=== PATIENT | female | born 1985 | race Caucasian/White ===

== ENCOUNTER 2021-11-22 00:25 | Inpatient (IN) | payer BC ==
[~2021-11-22 00:25] MED LIST: Acetaminophen 325 MG Tab PO PRN; Carboprost Tromethamine 250 MCG/1 ML Amp IM PRN; Lactated Ringers 1,000 ML IV ONE; Lidocaine 1% 30 ML SDV INJECT PRN; Methylergonovine 0.2 MG/1 ML Amp IM PRN; Misoprostol 400 MCG (4 X 100 MCG TAB) RECTAL PRN; Ondansetron 4 MG/2 ML SDV IVPUSH PRN; Oxytocin/Normal Saline 30 UNIT/500 ML BAG IV SCH; Tranexamic Acid 1,000 MG in Sodium Chloride 0.9% 100 ML IV PRN; hydrOXYzine HCl 25 MG Tab PO PRN
[2021-11-22] MEDS: Misoprostol 25 MCG (1/4 of 100 MCG) Tab VAG PRN ×2 (01:12→05:26)
--- NOTE | 2021-11-22 02:22 | HP ---
CHIEF COMPLAINT: Induction of labor. HISTORY OF PRESENT ILLNESS: Marianna Jacobsen is a 36-year-old, , female at 39- 4/7 days gestation, confirmed by last menstrual period on 02/18/2021, here for induction due to advanced maternal age. She has had great care starting at 6 weeks, and was only complicated by COVID infection during 2nd trimester, which was diagnosed on 08/19/2021. She was fully vaccinated. Secondly, she had impaired glucose tolerance, passing her 3-hour oral glucose tolerance test, and advanced maternal age. Medication exposures included baby aspirin 81 mg, which she takes every other day, last dose being 2 days ago; Colace and MiraLAX; vitamin; albuterol inhaler during COVID, which she has not taken since; and iron, which she took intermittently. Today, she presents without any bleeding, loss of fluid, or contractions. She does report a few [place] every now and then. She denies any preeclampsia signs or symptoms and has no concerns. LABORATORIES: Blood type A positive, antibody screen negative, rubella immune, hepatitis C nonreactive, HIV nonreactive, hepatitis B surface antigen nonreactive, RPR nonreactive. 1-hour oral glucose tolerance test 160, 3-hour 92, 114, 105, 58. UA wet prep negative. Declined GC testing. Quad screen negative. Eighteen-week ultrasound within normal limits with a posterior placenta. HISTORY: Negative. ALLERGIES: No known allergies. PAST MEDICAL HISTORY: Obesity; COVID infection on 08/19/2021. PAST SURGICAL HISTORY: Tonsillectomy and wisdom teeth extraction. PAST FAMILY HISTORY: Mother with breast cancer at 56. Father with atrial fibrillation. Maternal grandmother, colon cancer. Maternal grandfather, multiple myeloma. Paternal grandmother, Parkinson's. Paternal grandfather, leukemia. SOCIAL HISTORY: . Works as an RN at [employer]. Quit smoking in August of 2020. Previously smoked half pack a day and lives in [place], [place]. PHYSICAL EXAMINATION: Vital Signs: Blood pressure 137/71, pulse 72, temperature 98.5 Fahrenheit, respirations 16. HEENT: Unremarkable. Cardiovascular: Regular rate and rhythm. No murmurs, rubs, or gallops. Respiratory: Clear to auscultation bilaterally. Abdomen: Gravid, soft, nontender. Baby palpates vertex. Cervical: Posterior cervix, fingertip and thin, 90%. Tocometer shows heart tones in 120s, category 1, and reactive. Extremities: Moderate lower leg edema bilaterally. Full range of motion. Skin: Warm and well perfused. No cyanosis, jaundice. Neurologic: No focal deficits. ASSESSMENT: 1. Intrauterine at 39 weeks 4 days. 2. . 3. Blood type A positive, rubella immune, group B streptococcus negative. 4. Advanced maternal age. 5. COVID infection affecting 2nd trimester. 6. Impaired glucose tolerance. PLAN: We will start induction with placement of 25 mg Cytotec vaginally every 4 hours until cervix is favorable and artificial rupture of membranes can occur. The patient also plans on having intrathecal for pain management, plans to breastfeed, and also plans on circumcision of baby boy. We will continue to allow labor to progress and monitor closely. The patient was seen by myself and Dr. Huang. Assessment and plan are under advisement of Dr. Huang. [facility] /[id number]
[2021-11-22] MEDS: Lactated Ringers 1,000 ML IV SCH ×3 (09:45→19:29)
[2021-11-22] MEDS ORDERED: Nalbuphine 10 MG/1 ML Vial IM ONE (17:26)
[2021-11-22] MEDS ORDERED: fentaNYL 100 MCG/2 ML SDV ONE (19:08)
[2021-11-22] MEDS ORDERED: Sodium Bicarbonate 4.2% 2.5 MEQ/5 ML SDV ONE ×2 (19:08→19:10)
[2021-11-22] MEDS ORDERED: fentaNYL 100 MCG/2 ML SDV ITHECAL ONE (19:10)
[2021-11-22] MEDS ORDERED: Sodium Chloride 0.9% 10 ML SDV ONE (19:10)
[2021-11-22] MEDS ORDERED: EPINEPHrine 1 MG/ML SDV ONE (19:10)
--- NOTE | 2021-11-22 20:09 | PCM.SN.2 ---
- Free Text/Narrative Note: Intrathecal. Sitting position, sterile prep and drape. 1% lidocaine w bicarb for skinwheal to L2 L3 interspace, introducer, 24 ga Pencan x 1. Pos CSF, neg heme, neg parasthesia. 0.1 ml of 1:1000 pf epi, 20 mcg pf sufenta, 30 mcg pf fentanyl, 0.4 ml pf NS and 6 mg of 0.75% pf Marcaine injected after CSF aspiration. Pt to L lateral position. Procedure time 1909 to 2014
[2021-11-22] MEDS: Sodium Chloride 0.9% 10 ML Syringe FLUSH SCH ×2 (20:14→21:27)
[2021-11-22] MEDS ORDERED: Benzocaine/Menthol 20%-0.5% Spray 78 GM Cannister TOP PRN (20:46)
[2021-11-22] MEDS ORDERED: Oxytocin 10 Units/1 ML SDV IM PRN (20:46)
[2021-11-22] MEDS ORDERED: Zolpidem 5 MG Tab PO PRN (20:46)
[2021-11-22] MEDS ORDERED: Simethicone 80 MG Tab.Chew PO PRN (20:46)
[2021-11-23] MEDS: Ibuprofen 800 MG Tab PO PRN ×3 (00:24→16:32)
[2021-11-23] MEDS: Docusate Sodium 100 MG Cap PO PRN ×2 (08:56→20:37)
[2021-11-23] MEDS: Prenatal Multivitamin with Calcium/Folic Acid/Iron Tab PO SCH (08:56)
[2021-11-23] MEDS: Sodium Chloride 0.9% 10 ML Syringe FLUSH SCH (09:07)
[2021-11-23] MEDS: Acetaminophen 325 MG Tab PO PRN ×3 (11:09→20:37)
--- NOTE | 2021-11-23 19:30 | PN ---
DATE: 11/23/2021 Hospital day #2. SUBJECTIVE: Marianna is doing well. day #1. She is ambulating without difficulty, urinating and passing gas. Pain is being controlled well with ibuprofen. She has no concerns about her and is working on . She has no symptoms of preeclampsia. OBJECTIVE: Vital Signs: Temperature 98.2 degrees Fahrenheit, pulse 69, blood pressure 110/61, respiratory rate 16, and O2 sat 99. HEENT: Unremarkable. Cardiovascular: Regular rate and rhythm. No murmurs, rubs, or gallops. Respiratory: Clear to auscultation bilaterally. Abdomen: Soft, nontender. Uterus firm below umbilicus. Extremities: Moderate edema of ankles unchanged from day before. ASSESSMENT: 1. Spontaneous vaginal delivery with vacuum assist at 39 weeks 4 days gestation. 2. . 3. Blood type A-positive, rubella immune, group B streptococcus negative. 4. Advanced maternal age. 5. COVID infection affecting 2nd trimester. 6. Impaired glucose tolerance. 7. Second-degree laceration repair. PLAN: Continue normal cares. Plan for discharge tomorrow morning and will meet with networks software consultant today to work on breast-feeding. The patient was seen by myself and Dr. Huang. Assessment and plan under advisement of Dr. Huang. [facility] /[id number] MTDD
[2021-11-24] MEDS: Ibuprofen 800 MG Tab PO PRN ×2 (02:41→10:33)
[2021-11-24] MEDS: Sodium Chloride 0.9% 10 ML Syringe FLUSH SCH (02:50)
[2021-11-24] MEDS: Prenatal Multivitamin with Calcium/Folic Acid/Iron Tab PO SCH (10:35)
[2021-11-24] MEDS: Docusate Sodium 100 MG Cap PO PRN (10:35)
--- NOTE | 2021-11-25 02:24 | DISCH ---
ADMISSION DIAGNOSES: 1. Intrauterine at 39 weeks 4 days. 2. G1, P0. 3. Blood type A positive, rubella immune, group B streptococcus negative. 4. Advanced maternal age. 5. Coronavirus disease infection in the second trimester. 6. Impaired glucose tolerance. DISCHARGE DIAGNOSES: 1. Intrauterine at 39 weeks 4 days, status post vaginal delivery with vacuum assist and second-degree laceration repair. 2. G1, P1. 3. Blood type A positive, rubella immune, group B streptococcus negative. 4. Advanced maternal age. 5. Coronavirus disease infection in the second trimester. 6. Impaired glucose tolerance. PROCEDURES PERFORMED: Vaginal delivery with vacuum assist, second-degree laceration repair under intrathecal anesthesia, Cytotec and Pitocin augmentation. HISTORY OF PRESENT ILLNESS: 36-year-old female with above-listed diagnoses, who came in for induction of labor for advanced maternal age. She received 3 doses of Cytotec along with Pitocin augmentation with spontaneous rupture of membranes followed by very rapid progression from 4 cm to complete within 2 hours. She had great care with only complicated by COVID infection in the second trimester, advanced maternal age, and impaired glucose tolerance, passing 3-hour oral glucose tolerance test. Medication exposures included aspirin, Colace, MiraLAX, vitamin, and albuterol inhaler. SUMMARY OF HOSPITAL COURSE: Delivery was relatively uncomplicated, was vacuum assisted due to bradycardia, recently produced a male. score 6 and 9. weight 3460 g. Mom and baby did well directly after delivery. Hospital course was good. The patient is ambulating, urinating, and passing gas without difficulty. Pain has been under control with Tylenol and ibuprofen. Bleeding is minimal and decreasing. has been improved with organizational research consultant and mother inquires to discharge home today. She has no concerns for her . OB LABS: Blood type A positive. Antibody screen negative. Rubella immune. Hep C nonreactive. HIV nonreactive. Hepatitis C surface antigen nonreactive. RPR nonreactive. Quad screen negative. PHYSICAL EXAMINATION: Vital Signs: Temp 97.6 degrees Fahrenheit, pulse 60, blood pressure 111/64, respiratory rate 16, O2 of 100% on room air. HEENT: Unremarkable. Heart: S1, S2. Regular rate and rhythm. No obvious murmurs, rubs, or gallops. Lungs: Clear to auscultation bilaterally. Abdomen: Soft, nontender. Firm uterus below umbilicus. Extremities: No edema. Full range of motion grossly. Neurologic: No focal deficits. LABORATORY DATA: Admission hemoglobin 11.5 and platelets 233. Discharge hemoglobin 10, platelets 220. CONDITION OF DISCHARGE COMPARED TO CONDITION ON ADMISSION: Good. DISCHARGE INSTRUCTIONS: 1. No lifting more than 20 pounds. Pelvic rest for the next 6 weeks. 2. Return to emergency room if temperature is greater than 100.4 Fahrenheit, discharge becomes foul smelling, breasts are red or tender, or vaginal bleeding increases. DISCHARGE MEDICATIONS: Tylenol and ibuprofen for pain. FOLLOWUP: Six weeks for visit in clinic with Dr. Huang. [place] check this Monday along with circumcision in clinic next week. The patient seen by myself and Dr. Huang. Assessment and plan under advisement of Dr. Huang. [facility] /[id number]
--- NOTE | 2021-11-27 16:55 | PCM.DEL ---
L & D Note - Delivery Note Cervical Ripening Method: Misoprostil, Oxytocin Provider: Khushi Huang - Patient Data Vitals - Most Recent: Last Vital Signs Temp 36.4 C 11/24/21 08:00 Pulse 60 11/24/21 08:00 Resp 16 11/24/21 08:00 BP 111/64 11/24/21 08:00 Pulse Ox 100 11/24/21 08:00 Weight - Most Recent: 107.048 kg Med Orders - Current: Current Medications Discontinued Medications Acetaminophen (Acetaminophen 325 Mg Tab) 650 mg PO Q4H PRN PRN Reason: Pain (Mild 1-3) and fever Last Admin: 11/23/21 20:37 Dose: 650 mg Documented by: Benzocaine/Menthol (Benzocaine/Menthol 20%-0.5% [place] 78 Gm Cannister) 0 gm TOP Q4H PRN PRN Reason: Perineal comfort measures Carboprost Tromethamine (Carboprost Tromethamine 250 Mcg/1 Ml Amp) 250 mcg IM ASDIRECTED PRN PRN Reason: HEMORRHAGE Docusate Sodium (Docusate Sodium 100 Mg Cap) 100 mg PO BID PRN PRN Reason: Constipation Last Admin: 11/24/21 10:35 Dose: 100 mg Documented by: Epinephrine HCl (Epinephrine 1 Mg/Ml Sdv) 0.1 mg .XX .STK-MED ONE Stop: 11/22/21 19:11 Fentanyl (Fentanyl 100 Mcg/2 Ml Sdv) Confirm Administered Dose 100 mcg .ROUTE .STK-MED ONE Stop: 11/22/21 19:09 Last Admin: 11/22/21 19:30 Dose: Not Given Documented by: Fentanyl (Fentanyl 100 Mcg/2 Ml Sdv) 30 mcg ITHECAL .STK-MED ONE Stop: 11/22/21 19:11 Hydroxyzine HCl (Hydroxyzine Hcl 25 Mg Tab) 50 mg PO ONETIME PRN PRN Reason: Sleep Oxytocin/Sodium Chloride (Pitocin In Ns 30 Unit/500 Ml) 30 unit in 500 mls @ 2 mls/hr IV TITRATE CHERYL; Protocol Last Titration: 11/22/21 23:20 Dose: Infused Documented by: Lactated Ringer's (Ringers, Lactated) 1,000 mls @ 999 mls/hr IV BOLUS ONE Stop: 11/22/21 01:15 Last Admin: 11/22/21 20:14 Dose: Not Given Documented by: Lactated Ringer's (Ringers, Lactated) 1,000 mls @ 125 mls/hr IV ASDIRECTED [facility] Last Admin: 11/22/21 19:29 Dose: 125 mls/hr Documented by: Tranexamic Acid 1,000 mg/ (Sodium Chloride) 110 mls @ 660 mls/hr IV ONETIME PRN PRN Reason: Bleeding Oxytocin/Sodium Chloride (Pitocin In Ns 30 Unit/500 Ml) 30 unit in 500 mls @ 2 mls/hr IV TITRATE CHERYL; Protocol Ibuprofen (Ibuprofen 800 Mg Tab) 800 mg PO Q8H PRN PRN Reason: Cramping Last Admin: 11/24/21 10:33 Dose: 800 mg Documented by: Lidocaine HCl (Lidocaine 1% 30 Ml Sdv) 30 ml INJECT ASDIRECTED PRN PRN Reason: Perineal Repair Methylergonovine Maleate (Methylergonovine 0.2 Mg/1 Ml Amp) 0.2 mg IM ASDIRECTED PRN PRN Reason: Hemorrhage Misoprostol (Misoprostol 400 Mcg (4 X 100 Mcg Tab)) 800 mcg RECTAL ASDIRECTED PRN PRN Reason: Hemorrhage Misoprostol (Misoprostol 25 Mcg (1/4 Of 100 Mcg) Tab) 25 mcg VAG Q4H PRN PRN Reason: cervical ripening Last Admin: 11/22/21 05:26 Dose: 25 mcg Documented by: Nalbuphine HCl (Nalbuphine 10 Mg/1 Ml Vial) 20 mg IM ONETIME ONE Stop: 11/22/21 17:27 Last Admin: 11/22/21 17:45 Dose: 20 mg Documented by: Ondansetron HCl (Ondansetron 4 Mg/2 Ml Sdv) 4 mg IVPUSH Q4H PRN PRN Reason: Nausea/Vomiting Last Admin: 11/22/21 17:20 Dose: 4 mg Documented by: Oxytocin (Oxytocin 10 Units/1 Ml Sdv) 10 unit IM ONETIME PRN PRN Reason: Bleeding Prenat Multivit/Bell/Iron/Folic Ac ( Multivitamin With Calcium/Folic Acid/Iron Tab) 1 each PO DAILY [facility] Last Admin: 11/24/21 10:35 Dose: 1 each Documented by: Simethicone (Simethicone 80 Mg Tab.Chew) 80 mg PO Q4H PRN PRN Reason: Gas Sodium Bicarbonate (Sodium Bicarbonate 4.2% 2.5 Meq/5 Ml Sdv) Confirm Administered Dose 2.5 meq .ROUTE .STK-MED ONE Stop: 11/22/21 19:09 Last Admin: 11/22/21 19:30 Dose: Not Given Documented by: Sodium Bicarbonate (Sodium Bicarbonate 4.2% 2.5 Meq/5 Ml Sdv) 0.5 meq .XX .STK- MED ONE Stop: 11/22/21 19:11 Sodium Chloride (Sodium Chloride 0.9% 10 Ml Syringe) 10 ml FLUSH 0900,2100 CHERYL Last Admin: 11/24/21 02:50 Dose: Not Given Documented by: Sodium Chloride (Sodium Chloride 0.9% 10 Ml Sdv) 0.4 ml .XX .STK-MED ONE Stop: 11/22/21 19:11 Sufentanil Citrate (Sufentanil 50 Mcg/1 Ml Amp) Confirm Administered Dose 50 mcg .ROUTE .STK-MED ONE Stop: 11/22/21 19:09 Last Admin: 11/22/21 19:30 Dose: Not Given Documented by: Sufentanil Citrate (Sufentanil 50 Mcg/1 Ml Amp) 20 mcg ITHECAL .STK-MED ONE Stop: 11/22/21 19:11 Zolpidem Tartrate (Zolpidem 5 Mg Tab) 5 mg PO BEDTIME PRN PRN Reason: Insomnia
== END 2021-11-24 11:00 | disposition home or self-care (01) | DRG 560 ==
LOC: UNDOADMOB 00:25 → DL.OB 00:25 → INTOOBSV 00:25 → OBSVTOIN 00:25 → DL.OB 20:08 → OBSVTOIN 20:08 → DL.MS 11-23 17:48
PROVIDERS: ADMIT Family Medicine; ATTEND Family Medicine
PROC: 10D07Z6 Extraction of Products of Conception, Vacuum, Via Natural or Artificial Opening (ICD-10-PCS; principal; 2021-11-22)
PROC: 0KQM0ZZ Repair Perineum Muscle, Open Approach (ICD-10-PCS; 2021-11-22)
DX: O76 Abnormality in fetal heart rate and rhythm complicating labor and delivery (principal); Z3A.39 39 weeks gestation of pregnancy; Z37.0 Single live birth; Z86.16 Personal history of COVID-19; O99.214 Obesity complicating childbirth; O70.1 Second degree perineal laceration during delivery; E66.9 Obesity, unspecified
CPT/HCPCS: 36415; 59409; 85027; A9270-GY; J0171; J2300; J2405; J2590; J3010; J7120

== ENCOUNTER 2025-02-14 03:26 | Inpatient (IN) | payer BC ==
[2025-02-14] MEDS ORDERED: Misoprostol 100 MCG Tab RECTAL PRN (08:46)
[2025-02-14] MEDS ORDERED: fentaNYL 100 MCG/2 ML SDV IVPUSH PRN (08:46)
[2025-02-14] MEDS ORDERED: Acetaminophen 325 MG Tab PO PRN (08:46)
[2025-02-14] MEDS ORDERED: Sodium Chloride 0.9% 10 ML Syringe FLUSH PRN (08:46)
[2025-02-14] MEDS ORDERED: Ondansetron 4 MG/2 ML SDV IVPUSH PRN (08:46)
[2025-02-14] MEDS ORDERED: Tranexamic Acid 1,000 MG in Sodium Chloride 0.9% 100 ML IV PRN ×2 (08:46→15:56)
[2025-02-14] MEDS ORDERED: Carboprost Tromethamine 250 MCG/1 ML Amp IM PRN (08:46)
[2025-02-14 08:58] LABS: HEMOGLOBIN 11.1 g/dL (12.0-16.0); MEAN CORPUSCULAR HEMOGLOBIN 29.4 pg (27.0-34.0); MEAN CORPUSCULAR HGB CONC 32.6 g/dL (33.0-35.0); MEAN CORPUSCULAR VOLUME 90.2 fL (80-100); RED BLOOD CELL COUNT 3.77 10^6/uL (4.2-5.4); WHITE BLOOD CELL COUNT,WBC 9.2 10^3/uL (5.0-10.0)
[2025-02-14] MEDS ORDERED: Oxytocin/Normal Saline 30 UNIT/500 ML BAG IV SCH (09:00)
[2025-02-14] MEDS: Oxytocin/Lactated Ringers 30 UNIT/500 ML BAG IV SCH (09:14)
[2025-02-14] MEDS: Lactated Ringers 1,000 ML IV ONE (09:14)
[2025-02-14] MEDS: Lactated Ringers 1,000 ML IV SCH (13:05)
[2025-02-14] MEDS: Methylergonovine 0.2 MG/1 ML Amp IM PRN (15:40)
[2025-02-14] MEDS ORDERED: Oxytocin 10 Units/1 ML SDV IM PRN (15:56)
[2025-02-14] MEDS ORDERED: Bisacodyl 10 MG Supp RECTAL PRN (15:56)
[2025-02-14] MEDS ORDERED: Docusate Sodium 100 MG Cap PO PRN (15:56)
[2025-02-14] MEDS ORDERED: Simethicone 80 MG Tab.Chew PO PRN (15:56)
[2025-02-14] MEDS ORDERED: ePHEDrine 50 MG/ML SDV IVPUSH PRN (16:02)
[2025-02-14] MEDS ORDERED: Phenylephrine HCl In 0.9% NaCl 1 MG/10 ML Syringe IVPUSH PRN (16:02)
[2025-02-14] MEDS ORDERED: Ropivacaine 200 MG in Premix Bag 1 BAG EPIDUR SCH (16:15)
[2025-02-14] MEDS: Lidocaine 1% 30 ML SDV INJECT ONE (19:52)
[2025-02-14] MEDS: Ibuprofen 800 MG Tab PO SCH (20:06)
[2025-02-14] MEDS: Witch Hazel Medicated Pads 100/Jar TOP PRN (22:15)
[2025-02-14] MEDS: Benzocaine/Menthol 20%-0.5% Spray 78 GM Cannister TOP PRN (22:15)
[2025-02-14] MEDS: Acetaminophen 325 MG Tab PO PRN (22:49)
[2025-02-15] MEDS: Ibuprofen 800 MG Tab PO SCH (03:33)
[2025-02-15] MEDS: Prenatal Multivitamin with Calcium/Folic Acid/Iron Tab PO SCH (07:40)
== END 2025-02-15 17:00 | disposition home or self-care (01) | DRG 560 ==
LOC: DL.OB 07:45 → OBSVTOIN 15:30
PROVIDERS: ADMIT Family Medicine; ATTEND Family Medicine
PROC: 00HU33Z Insertion of Infusion Device into Spinal Canal, Percutaneous Approach (ICD-10-PCS; principal; 2025-02-14)
PROC: 3E0R3BZ Introduction of Anesthetic Agent into Spinal Canal, Percutaneous Approach (ICD-10-PCS; principal; 2025-02-14)
PROC: 10907ZC Drainage of Amniotic Fluid, Therapeutic from Products of Conception, Via Natural or Artificial Opening (ICD-10-PCS; principal; 2025-02-14)
PROC: 10E0XZZ Delivery of Products of Conception, External Approach (ICD-10-PCS; principal; 2025-02-14)
DX: O99.02 Anemia complicating childbirth (principal); O99.214 Obesity complicating childbirth; O99.12 Other diseases of the blood and blood-forming organs and certain disorders involving the immune mechanism complicating childbirth; D68.51 Activated protein C resistance; Z86.16 Personal history of COVID-19; Z90.49 Acquired absence of other specified parts of digestive tract; Z98.890 Other specified postprocedural states; Z87.891 Personal history of nicotine dependence; Z79.899 Other long term (current) drug therapy; Z3A.37 37 weeks gestation of pregnancy; Z37.0 Single live birth
CPT/HCPCS: 36415; 51702; 59025; 85027; A9270-GY; J2210; J2590; J7120